=== PATIENT | female | born 1965 | race Caucasian/White ===

== ENCOUNTER → 2024-10-08 16:27 | Outpatient (CLI) | payer BC, SELFPAY ==
--- NOTE | 2024-10-08 16:28 | DI.RAD.S_ITS ---
PROCEDURE: XR TOE LT MIN 2V INDICATIONS: Possible FB plantar great toe TECHNIQUE: 3 views of the 1st toe(s) acquired. COMPARISON: None. FINDINGS: Bones: No fractures or dislocations. No suspicious bony lesions. Soft tissues: 1.0 cm linear radiodense foreign body within the plantar soft tissues of the 1st digit. Otherwise, no suspicious soft tissue densities. IMPRESSION: Radiodense foreign body identified within the 1st digit plantar soft tissues. Dictated by: Humberto Mcginnis M.D. on 10/11/2024 at 17:30 Approved by: Humberto Mcginnis M.D. on 10/11/2024 at 17:32
== END ==
PROVIDERS: Referring Provider Nurse Practitioner Family; Visit Provider Nurse Practitioner Family
DX: S90.455A Superficial foreign body, left lesser toe(s), initial encounter (principal); M79.676 Pain in unspecified toe(s); W45.8XXA Other foreign body or object entering through skin, initial encounter
CPT/HCPCS: 73660